=== PATIENT | male | born 1960 | race African-American/Black ===

== ENCOUNTER 2018-06-03 08:31 | Inpatient (IN) | payer OTHER ==
[2018-06-03 09:05] VITALS: BMI 32.8
--- NOTE | 2018-06-03 09:51 | HP ---
CIWA Score - CIWA Score Nausea/Vomitin-Mild Nausea/No Vomiting Muscle Tremors: 4-Moderate,w/Arms Extend Anxiety: 4-Mod. Anxious/Guarded Agitation: 1-Slight > Activity Paroxysmal Sweats: 1-Minimal Palms Moist Orientation: 0-Oriented Tacttile Disturbances: 1-Very Mild Itch/Numbness Auditory Disturbances: 1-Very Mild Visual Disturbances: 1-Very Mild Sensitivity Headache: 2-Mild CIWA-Ar Total Score: 16 Admission ROS BHS - HPI Chief Complaint: I want to get clean, get my life back together, start fresh, get off everything period, I'm really tired, please help me, drugs just messed my life up Allergies/Adverse Reactions: Allergies Allergy/AdvReac Type Severity Reaction Status Date / Time aspirin Allergy Mild Hives Verified 06/03/18 09:14 History of Present Illness: 57 yo gentleman here for detox from alcohol. Patient is on a pain management program - on oxycodone for back pain - which he states he does not abuse - he was told we cannot give him that here and he states he is ok with that. States he has had an overdose twice with heroin; no seizures, black out long time ago. Longest time sober was six years. Never in methadone program. Exam Limitations: Clinical Condition - Ebola screening Have you traveled outside of the country in the last 21 days: No (N) Have you had contact with anyone from an Ebola affected area: No Have you been sick,other than usual withdrawal symptoms: No Do you have a fever: No - Review of Systems Constitutional: Loss of Appetite, Night Sweats, Changes in sleep, Weakness EENT: reports: No Symptoms Reported Respiratory: reports: No Symptoms reported Cardiac: reports: No Symptoms Reported GI: reports: Poor Appetite, Poor Fluid Intake, Indigestion, Abdominal cramping : reports: Frequency Musculoskeletal: reports: Back Pain, Muscle Pain Integumentary: reports: No Symptoms Reported Neuro: reports: Headache, Tremors Endocrine: reports: No Symptoms Reported Hematology: reports: No Symptoms Reported Psychiatric: reports: Judgement Intact, Mood/Affect Appropiate, Orientated x3, Anxious Other Systems: Reviewed and Negative Patient History - Patient Medical History Hx Asthma: Yes (on inhaler) Hx Chronic Obstructive Pulmonary Disease (COPD): No Hx Cancer: No Hx Congestive Heart Failure: No Hx Hypertension: Yes (on meds) Hx Hypercholesterolemia: No Hx Pacemaker: No HX Cerebrovascular Accident: No Hx Seizures: No Hx Diabetes: No Hx Gastrointestinal Disorders: No Hx Liver Disease: No Hx Genitourinary Disorders: No Hx Sexually Transmitted Disorders: No Hx Renal Disease (ESRD): No Hx Thyroid Disease: No Hx Human Immunodeficiency Virus (HIV): No Hx Hepatitis C: Yes (treated - harvoni) Hx Depression: Yes (hospitalized december 2017; on meds) Hx Suicide Attempt: Yes (thoughts) Hx Bipolar Disorder: No Hx Schizophrenia: Yes (hears voices; on meds) Other Medical History: back pain, OA knees - Patient Surgical History Past Surgical History: Yes Hx Orthopedic Surgery: Yes (laminectomy 1999; right knee arthroscopy 10/2017; ) - PPD History Previous Implant?: Yes Documented Results: Negative w/proof PPD to be Administered?: Yes - Reproductive History Patient is a Female of Child Bearing Age (11 -55 yrs old): No (male) - Smoking Cessation Smoking history: Current every day smoker Have you smoked in the past 12 months: Yes Aproximately how many cigarettes per day: 10 Initiated information on smoking cessation: Yes 'Breaking Loose' booklet given: 06/03/18 - Substance & Tx. History Hx Alcohol Use: Yes Hx Substance Use: Yes Substance Use Type: Alcohol, Cocaine, Heroin Hx Substance Use Treatment: Yes - Substances Abused Alcohol Route: Oral Frequency: Daily Amount used: 1/5 Rum Age of first use: 14 Date of Last Use: 06/01/18 crack Route: Smoking Frequency: 1-2 times per week Amount used: $700 Age of first use: 25 Date of Last Use: 05/30/18 heroin Route: Injection Frequency: 1-2 times per week Amount used: 2 bags Age of first use: 30 Date of Last Use: 05/27/18 Family Disease History - Family Disease History Family Disease History: Diabetes: Father (, hx etoh), Mother (, ), Heart Disease: Father, Other: Father, Mother, Brother (two - living - healthy ), Sister (one - living -brain tumor surgery), Son (one - living - healthy), Daughter (two - living - healthy) Admission Physical Exam BHS - Vital Signs Vital Signs: Vital Signs - 24 hr 06/03/18 09:01 Temperature 98.4 F Pulse Rate 96 H Respiratory 18 Rate Blood Pressure 138/83 - Physical General Appearance: Yes: Nourished, Appropriately Dressed, Moderate Distress, Obese, Tremorous, Anxious HEENTM: Yes: EOMI, Hearing grossly Normal, Normocephalic, Normal Voice, Pharynx Normal Respiratory: Yes: Normal Breath Sounds, No Respiratory Distress Neck: Yes: No masses,lesions,Nodules Breast: Yes: Breast Exam Deferred Cardiology: Yes: Regular Rhythm, Regular Rate Abdominal: Yes: Soft, Protuberent Genitourinary: Yes: Frequency Back: Yes: Normal Inspection, Surgical Scar (healed, midline lumbar-sacral) Musculoskeletal: Yes: full range of Motion, Gait Steady Extremities: Yes: Normal Inspection, Non-Tender Neurological: Yes: Fully Oriented, Alert, Normal Mood/Affect, Normal Response Integumentary: Yes: Normal Color, Warm Lymphatic: Yes: Within Normal Limits - Diagnostic (1) Alcohol dependence with uncomplicated withdrawal Current Visit: Yes Status: Chronic (2) Obesity (BMI 30.0-34.9) Current Visit: Yes Status: Chronic (3) Post laminectomy syndrome Current Visit: Yes Status: Chronic (4) Opiate dependence, continuous Current Visit: Yes Status: Chronic (5) Chronic back pain Current Visit: Yes Status: Chronic Qualifiers: Back pain location: low back pain Back pain laterality: midline Sciatica presence: without sciatica Qualified Code(s): M54.5 - Low back pain; G89.29 - Other chronic pain (6) Asthma Current Visit: Yes Status: Chronic Qualifiers: Asthma severity: mild Asthma persistence: intermittent Asthma complication type: uncomplicated Qualified Code(s): J45.20 - Mild intermittent asthma, uncomplicated (7) Hepatitis C virus infection cured after antiviral drug therapy Current Visit: Yes Status: Chronic (8) Osteoarthritis of knees, bilateral Current Visit: Yes Status: Chronic Qualifiers: Osteoarthritis type: primary Qualified Code(s): M17.0 - Bilateral primary osteoarthritis of knee Cleared for Admission S - Detox or Rehab [facility] Level of Care: Medically Managed Detox Regimen/Protocol: Librium [facility] Breath Alcohol Content Breath Alcohol Content: 0 Urine Drug Screen - Results Drug Screen Negative: No Urine Drug Screen Results: BZO-Benzodiazepines, OXY-Oxycodone
[2018-06-03] MEDS ORDERED: P-EPHED 60MG/TRIPROLIDI 2.5MG TABLET PO PRN (10:04)
[2018-06-03] MEDS ORDERED: MAGNESIUM CITRATE 300 ML BOTTLE PO PRN (10:04)
[2018-06-03] MEDS ORDERED: hydrOXYzine PAMOATE 50 MG CAPSULE (FP) PO PRN (10:04)
[2018-06-03] MEDS ORDERED: chlordiazePOXIDE HCL 25 MG CAPSULE PO PRN (10:04)
[2018-06-03] MEDS ORDERED: LOPERAMIDE HCL 2 MG CAPSULE PO PRN (10:04)
[2018-06-03] MEDS ORDERED: guaiFENesin/D-METHORPHAN HB 10 ML UNIT-DOSE CUPS PO PRN (10:04)
[2018-06-03] MEDS ORDERED: MAG HYDROX/AL HYDROX/SIMETH 30 ML UNIT-DOSE CUP PO PRN (10:04)
[2018-06-03] MEDS ORDERED: MAGNESIUM HYDROX 2400MG/30ML ORAL SUSPENSION 30 ML CUP PO PRN (10:04)
[2018-06-03] MEDS ORDERED: MENTHOL/PHENOL 1 EACH UD MM PRN (10:04)
[2018-06-03] MEDS ORDERED: ACETAMINOPHEN 325 MG TABLET (FP) PO PRN (10:04)
[2018-06-03] MEDS ORDERED: NICOTINE POLACRILEX 2 MG GUM BUC PRN (10:04)
[2018-06-03] MEDS ORDERED: chlordiazePOXIDE HCL 25 MG CAPSULE PO ONE (11:00)
[2018-06-03] MEDS ORDERED: ALBUTEROL SO4 8 GM HFA INHALER IH PRN (11:50)
[2018-06-03] MEDS: CYCLOBENZAPRINE HCL 10 MG TABLET (FP) PO PRN ×2 (11:58→22:22)
[2018-06-03] MEDS: LIDOCAINE 5% TOPICAL PATCH TP SCH (11:59)
[2018-06-03] MEDS: NICOTINE 21 MG/24 HOURS TOPICAL PATCH TD SCH (11:59)
[2018-06-03] MEDS ORDERED: ALBUTEROL SO4 8 GM HFA INHALER IH SCH (14:00)
[2018-06-03 17:00] LABS: URINE APPEARANCE SLCLOUDY; URINE BILIRUBIN NEGATIVE (<2.0 mg/dL); URINE COLOR DKYELLOW; URINE GLUCOSE (UA) NEGATIVE (NEGATIVE); URINE KETONE NEGATIVE (NEGATIVE); URINE LEUK ESTERASE TRACE (NEGATIVE); URINE NITRITE POSITIVE (NEGATIVE); URINE PROTEIN NEGATIVE (NEGATIVE); URINE UROBILINOGEN NEGATIVE mg/dL (0.2-1.0)
[2018-06-03 17:24] LABS: EPI CELLS RARE /HPF (FEW); URINE BACTERIA RARE /hpf (NONE SEEN); URINE MUCUS MODERATE
[2018-06-03] MEDS: chlordiazePOXIDE HCL 25 MG CAPSULE PO SCH ×2 (17:56→22:22)
[2018-06-03] MEDS ORDERED: MELATONIN 5 MG TABLETS PO PRN (22:00)
[2018-06-03] MEDS: THIAMINE HCL 100 MG TABLET (FP) PO SCH (22:22)
[2018-06-04] MEDS: LIDOCAINE PATCH REMOVAL MC SCH ×2 (00:44→22:19)
[2018-06-04] MEDS: chlordiazePOXIDE HCL 25 MG CAPSULE PO SCH ×4 (05:13→22:24)
[2018-06-04] MEDS: CYCLOBENZAPRINE HCL 10 MG TABLET (FP) PO PRN ×3 (05:13→22:25)
[2018-06-04] MEDS: PRENATAL VITAMINS W/ FOLIC ACID TABLET (FP) PO SCH (10:43)
[2018-06-04] MEDS: LISINOPRIL 10 MG TABLET (FP) PO SCH (10:43)
[2018-06-04] MEDS: NICOTINE 21 MG/24 HOURS TOPICAL PATCH TD SCH (10:44)
[2018-06-04] MEDS: LIDOCAINE 5% TOPICAL PATCH TP SCH (10:44)
[2018-06-04 10:56] LABS: HEMATOCRIT 45.5 % (35.4-49); HEMOGLOBIN 15.4 GM/dL (11.7-16.9); MCH 32.9 pg (25.7-33.7); MCHC 33.7 g/dl (32.0-35.9); MEAN CELL VOLUME 97.5 fl (80-96); MEAN PLT VOLUME 10.4 fl (7.5-11.1); PLATELET COUNT 172 K/MM3 (134-434); RBC 4.67 M/mm3 (4.00-5.60); RDW 13.4 % (11.9-15.9); WHITE BLOOD COUNT 6.3 K/mm3 (4.0-10.0)
[2018-06-04 11:05] LABS: ALBUMIN 3.6 g/dl (3.4-5.0); CHLORIDE 104 mmol/L (98-107); SODIUM 144 mmol/L (136-145)
[2018-06-04 11:11] LABS: ALK PHOS 78 U/L (45-117); ANION GAP 9 MMOL/L (8-16); BILIRUBIN,TOTAL 0.5 mg/dL (0.2-1.0); BLOOD UREA NITROGEN 12 mg/dL (7-18); CALCIUM 9.1 mg/dL (8.5-10.1); CO2 31 mmol/L (21-32); CREATININE 0.9 mg/dL (0.7-1.3); GLUCOSE,RANDOM 101 mg/dL (74-106); SGOT/AST 39 U/L (15-37); SGPT/ALT 57 U/L (12-78); TOT PROT 7.3 g/dl (6.4-8.2)
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
[2018-06-04] MEDS: risperiDONE 1 MG TABLET (FP) PO SCH ×2 (13:35→22:23)
--- NOTE | 2018-06-04 16:37 | PN ---
[facility] CIWA - CIWA Score Nausea/Vomitin Muscle Tremors: 3 Anxiety: 3 Agitation: 2 Paroxysmal Sweats: 3 Orientation: 0-Oriented Tacttile Disturbances: 1-Very Mild Itch/Numbness Auditory Disturbances: 0-None Visual Disturbances: 0-None Headache: 1-Very Mild CIWA-Ar Total Score: 15 [facility] Progress Note (SOAP) Subjective: Back pain, chills, tremor, interrupted sleep, nausea Objective: 06/04/18 16:33 Last Vital Signs Temp Pulse Resp BP Pulse Ox 98.3 F 96 H 20 123/91 06/04/18 13:15 06/04/18 13:15 06/04/18 13:15 06/04/18 13:15 Laboratory Tests 06/03/18 06/04/18 06/04/18 14:07 08:10 08:10 WBC 6.3 RBC 4.67 Hgb 15.4 Hct 45.5 MCV 97.5 H MCH 32.9 MCHC 33.7 RDW 13.4 Plt Count 172 MPV 10.4 Sodium 144 Potassium 4.0 Chloride 104 Carbon Dioxide 31 Anion Gap 9 BUN 12 Creatinine 0.9 Creat Clearance w eGFR > 60 Random Glucose 101 Calcium 9.1 Total Bilirubin 0.5 AST 39 H ALT 57 Alkaline Phosphatase 78 Total Protein 7.3 Albumin 3.6 Urine Color Dkyellow Urine Appearance Slcloudy Urine pH 5.0 Ur Specific [place] 1.021 Urine Protein Negative Urine Glucose (UA) Negative Urine Ketones Negative Urine Blood 1+ H Urine Nitrite Positive Urine Bilirubin Negative Urine Urobilinogen Negative Ur Leukocyte Esterase Trace Urine WBC (Auto) 8 Urine RBC (Auto) <1 Ur Epithelial Cells Rare Urine Bacteria Rare Urine Mucus Moderate RPR Titer HIV 1&2 Antibody Screen HIV P24 Antigen 06/04/18 06/04/18 08:10 08:10 WBC RBC Hgb Hct MCV MCH MCHC RDW Plt Count MPV Sodium Potassium Chloride Carbon Dioxide Anion Gap BUN Creatinine Creat Clearance w eGFR Random Glucose Calcium Total Bilirubin AST ALT Alkaline Phosphatase Total Protein Albumin Urine Color Urine Appearance Urine pH Ur Specific [place] Urine Protein Urine Glucose (UA) Urine Ketones Urine Blood Urine Nitrite Urine Bilirubin Urine Urobilinogen Ur Leukocyte Esterase Urine WBC (Auto) Urine RBC (Auto) Ur Epithelial Cells Urine Bacteria Urine Mucus RPR Titer Nonreactive HIV 1&2 Antibody Screen Negative HIV P24 Antigen Negative Labs reviewed: Noted with abnormal UA and Acute UTI Assessment: 06/04/18 16:35 Withdrawal symptoms Noted with Abnormal UA and Acute UTI: Plan: Continue detox Abnormal UA: encouraged PO water intake Acute UTI: send urine culture, start ciprofloxacin 500mg PO bid x 10 days, follow up with your PCP for further evaluation
[2018-06-04] MEDS: THIAMINE HCL 100 MG TABLET (FP) PO SCH (22:24)
[2018-06-04] MEDS: ZOLPIDEM TARTRATE 10 MG TABLET (PARK CARE ONLY) PO PRN (22:27)
[2018-06-05] MEDS: chlordiazePOXIDE HCL 25 MG CAPSULE PO SCH ×2 (06:15→10:23)
[2018-06-05] MEDS: PRENATAL VITAMINS W/ FOLIC ACID TABLET (FP) PO SCH (10:23)
[2018-06-05] MEDS: LIDOCAINE 5% TOPICAL PATCH TP SCH (10:23)
[2018-06-05] MEDS: LISINOPRIL 10 MG TABLET (FP) PO SCH (10:23)
[2018-06-05] MEDS: risperiDONE 1 MG TABLET (FP) PO SCH ×2 (10:23→22:26)
[2018-06-05] MEDS: NICOTINE 21 MG/24 HOURS TOPICAL PATCH TD SCH (10:24)
--- NOTE | 2018-06-05 11:23 | EKG ---
Test Reason : Blood Pressure : / mmHG Vent. Rate : 079 BPM Atrial Rate : 079 BPM P-R Int : 246 ms QRS Dur : 074 ms QT Int : 378 ms P-R-T Axes : 063 013 040 degrees QTc Int : 433 ms SINUS RHYTHM WITH 1ST DEGREE A-V BLOCK OTHERWISE NORMAL ECG NO PREVIOUS ECGS AVAILABLE Confirmed by LITTLE MCDANIELS, VALENITNA ([id number]) on 06/05/2018 11:23:11 AM Referred By: Confirmed By:VALENTINA FITCH MD
--- NOTE | 2018-06-05 15:36 | PN ---
[facility] CIWA - CIWA Score Nausea/Vomitin Muscle Tremors: 3 Anxiety: 3 Agitation: 2 Paroxysmal Sweats: 3 Orientation: 0-Oriented Tacttile Disturbances: 0-None Auditory Disturbances: 0-None Visual Disturbances: 0-None Headache: 0-None Present CIWA-Ar Total Score: 13 [facility] Progress Note (SOAP) Subjective: shakes sweats back pain Objective: 06/05/18 15:35 in bed A & O x 3 Vital Signs Temperature 97.5 F L 06/05/18 13:19 Pulse Rate 115 H 06/05/18 13:19 Respiratory Rate 18 06/05/18 13:19 Blood Pressure 111/82 06/05/18 13:19 O2 Sat by Pulse Oximetry (%) Assessment: 06/05/18 15:36 withdrawal sx Plan: continue detox lido patch/prn pain med for back pain
[2018-06-05] MEDS: chlordiazePOXIDE 5 MG CAPSULE PO SCH ×2 (16:58→22:26)
[2018-06-05] MEDS: CYCLOBENZAPRINE HCL 10 MG TABLET (FP) PO PRN (17:00)
[2018-06-05] MEDS: THIAMINE HCL 100 MG TABLET (FP) PO SCH (22:25)
[2018-06-05] MEDS: LIDOCAINE PATCH REMOVAL MC SCH (22:26)
[2018-06-05] MEDS: ZOLPIDEM TARTRATE 10 MG TABLET (PARK CARE ONLY) PO PRN (22:26)
[2018-06-06] MEDS: chlordiazePOXIDE 5 MG CAPSULE PO SCH ×2 (05:40→10:12)
[2018-06-06] MEDS: CYCLOBENZAPRINE HCL 10 MG TABLET (FP) PO PRN (05:41)
[2018-06-06] MEDS: LIDOCAINE 5% TOPICAL PATCH TP SCH (10:12)
[2018-06-06] MEDS: PRENATAL VITAMINS W/ FOLIC ACID TABLET (FP) PO SCH (10:12)
[2018-06-06] MEDS: LISINOPRIL 10 MG TABLET (FP) PO SCH (10:12)
[2018-06-06] MEDS: risperiDONE 1 MG TABLET (FP) PO SCH ×2 (10:12→22:09)
[2018-06-06] MEDS: NICOTINE 21 MG/24 HOURS TOPICAL PATCH TD SCH (10:13)
--- NOTE | 2018-06-06 13:26 | PN ---
[facility] Progress Note (SOAP) Subjective: ANXIETY,SWEATS,DRY MOTH, CHRONIC BACK PAIN, INTERMITTENT SLEEP. Objective: 06/06/18 13:25 Vital Signs 06/06/18 06/06/18 06:39 09:26 Temperature 97.8 F 96.7 F L Pulse Rate 78 95 H Respiratory 18 18 Rate Blood Pressure 104/72 131/96 Laboratory Tests 06/03/18 06/04/18 06/04/18 14:07 08:10 08:10 WBC 6.3 RBC 4.67 Hgb 15.4 Hct 45.5 MCV 97.5 H MCH 32.9 MCHC 33.7 RDW 13.4 Plt Count 172 MPV 10.4 Sodium 144 Potassium 4.0 Chloride 104 Carbon Dioxide 31 Anion Gap 9 BUN 12 Creatinine 0.9 Creat Clearance w eGFR > 60 Random Glucose 101 Calcium 9.1 Total Bilirubin 0.5 AST 39 H ALT 57 Alkaline Phosphatase 78 Total Protein 7.3 Albumin 3.6 Urine Color Dkyellow Urine Appearance Slcloudy Urine pH 5.0 Ur Specific [place] 1.021 Urine Protein Negative Urine Glucose (UA) Negative Urine Ketones Negative Urine Blood 1+ H Urine Nitrite Positive Urine Bilirubin Negative Urine Urobilinogen Negative Ur Leukocyte Esterase Trace Urine WBC (Auto) 8 Urine RBC (Auto) <1 Ur Epithelial Cells Rare Urine Bacteria Rare Urine Mucus Moderate RPR Titer HIV 1&2 Antibody Screen HIV P24 Antigen 06/04/18 06/04/18 08:10 08:10 WBC RBC Hgb Hct MCV MCH MCHC RDW Plt Count MPV Sodium Potassium Chloride Carbon Dioxide Anion Gap BUN Creatinine Creat Clearance w eGFR Random Glucose Calcium Total Bilirubin AST ALT Alkaline Phosphatase Total Protein Albumin Urine Color Urine Appearance Urine pH Ur Specific [place] Urine Protein Urine Glucose (UA) Urine Ketones Urine Blood Urine Nitrite Urine Bilirubin Urine Urobilinogen Ur Leukocyte Esterase Urine WBC (Auto) Urine RBC (Auto) Ur Epithelial Cells Urine Bacteria Urine Mucus RPR Titer Nonreactive HIV 1&2 Antibody Screen Negative HIV P24 Antigen Negative Assessment: 06/06/18 13:26 WITHDRAWAL SX Plan: CONTINUE DETOX RX FOR LISINOPRIL AND LEVAQUIN SENT TO [facility] FOR PT TO ADVERTISING DIRECTOR.
[2018-06-06] MEDS: chlordiazePOXIDE HCL 10 MG CAPSULE PO SCH ×2 (17:26→22:09)
[2018-06-06] MEDS: THIAMINE HCL 100 MG TABLET (FP) PO SCH (22:09)
[2018-06-06] MEDS: LIDOCAINE PATCH REMOVAL MC SCH (22:10)
[2018-06-06] MEDS: ZOLPIDEM TARTRATE 10 MG TABLET (PARK CARE ONLY) PO PRN (22:11)
[2018-06-07] MEDS: chlordiazePOXIDE HCL 10 MG CAPSULE PO SCH ×2 (06:22→10:09)
--- NOTE | 2018-06-07 08:37 | DS ---
[facility] Detox Discharge Summary Admission Date: 06/03/18 - History Present History: Alcohol Dependence Additional Comments: DETOX COMPLETED. ALERT O X 3. Pertinent Past History: PLEASE SEE DX BELOW - Physical Exam Results Vital Signs: Vital Signs Temperature 97.3 F L 06/06/18 22:15 Pulse Rate 96 H 06/06/18 22:15 Respiratory Rate 18 06/07/18 03:30 Blood Pressure 118/85 06/06/18 22:15 O2 Sat by Pulse Oximetry (%) Pertinent Admission Physical Exam Findings: WITHDRAWAL SX Laboratory Tests 06/03/18 06/04/18 06/04/18 14:07 08:10 08:10 WBC 6.3 RBC 4.67 Hgb 15.4 Hct 45.5 MCV 97.5 H MCH 32.9 MCHC 33.7 RDW 13.4 Plt Count 172 MPV 10.4 Sodium 144 Potassium 4.0 Chloride 104 Carbon Dioxide 31 Anion Gap 9 BUN 12 Creatinine 0.9 Creat Clearance w eGFR > 60 Random Glucose 101 Calcium 9.1 Total Bilirubin 0.5 AST 39 H ALT 57 Alkaline Phosphatase 78 Total Protein 7.3 Albumin 3.6 Urine Color Dkyellow Urine Appearance Slcloudy Urine pH 5.0 Ur Specific [place] 1.021 Urine Protein Negative Urine Glucose (UA) Negative Urine Ketones Negative Urine Blood 1+ H Urine Nitrite Positive Urine Bilirubin Negative Urine Urobilinogen Negative Ur Leukocyte Esterase Trace Urine WBC (Auto) 8 Urine RBC (Auto) <1 Ur Epithelial Cells Rare Urine Bacteria Rare Urine Mucus Moderate RPR Titer HIV 1&2 Antibody Screen HIV P24 Antigen 06/04/18 06/04/18 08:10 08:10 WBC RBC Hgb Hct MCV MCH MCHC RDW Plt Count MPV Sodium Potassium Chloride Carbon Dioxide Anion Gap BUN Creatinine Creat Clearance w eGFR Random Glucose Calcium Total Bilirubin AST ALT Alkaline Phosphatase Total Protein Albumin Urine Color Urine Appearance Urine pH Ur Specific [place] Urine Protein Urine Glucose (UA) Urine Ketones Urine Blood Urine Nitrite Urine Bilirubin Urine Urobilinogen Ur Leukocyte Esterase Urine WBC (Auto) Urine RBC (Auto) Ur Epithelial Cells Urine Bacteria Urine Mucus RPR Titer Nonreactive HIV 1&2 Antibody Screen Negative HIV P24 Antigen Negative - Treatment Hospital Course: Detox Protocol Followed, Detoxed Safely, Responded well, Discharged Condition Good - Medication Discharge Medications: Ambulatory Orders Bupropion HCl [Wellbutrin -] 450 mg PO DAILY 09/08/18 Gabapentin 300 mg PO TID 06/03/18 Oxycodone HCl/Acetaminophen [Percocet 10-325 mg Tablet] 1 tab PO TID 06/03/18 Oxycodone Myristate [Xtampza ER] 9 mg PO BID 06/03/18 hydrOXYzine PAMOATE [Vistaril -] 75 mg PO TID 06/03/18 Bupropion HCl [Wellbutrin Xl -] 450 mg PO DAILY #90 tab.sr.24h 06/04/18 Risperidone [Risperdal] 3 mg PO BID #60 tablet 06/04/18 Albuterol Sulfate [Proventil HFA Inhaler -] 2 puff IH QID #1 hfa.aer.ad Lisinopril 10 mg PO DAILY 30 Days tablet 06/06/18 levoFLOXacin [Levaquin -] 500 mg PO DAILY@0600 #5 tablet 06/06/18 - Diagnosis (1) Alcohol dependence with uncomplicated withdrawal Current Visit: Yes Status: Acute (2) UTI (urinary tract infection) Current Visit: Yes Status: Acute (3) Asthma Current Visit: Yes Status: Chronic Qualifiers: Asthma severity: mild Asthma persistence: intermittent Asthma complication type: uncomplicated Qualified Code(s): J45.20 - Mild intermittent asthma, uncomplicated (4) HTN (hypertension) Current Visit: Yes Status: Chronic Qualifiers: Hypertension type: essential hypertension Qualified Code(s): I10 - Essential (primary) hypertension (5) Hepatitis C virus infection cured after antiviral drug therapy Current Visit: Yes Status: Chronic (6) Nicotine dependence Current Visit: Yes Status: Acute Qualifiers: Nicotine product type: cigarettes Substance use status: in withdrawal Qualified Code(s): F17.213 - Nicotine dependence, cigarettes, with withdrawal (7) Obesity (BMI 30.0-34.9) Current Visit: Yes Status: Chronic (8) Osteoarthritis of knees, bilateral Current Visit: Yes Status: Chronic Qualifiers: Osteoarthritis type: primary Qualified Code(s): M17.0 - Bilateral primary osteoarthritis of knee (9) Post laminectomy syndrome Current Visit: Yes Status: Chronic (10) Abnormal finding on urinalysis Current Visit: Yes Status: Acute - AMA Did Patient Leave Against Medical Advice: No
[2018-06-07] MEDS: PRENATAL VITAMINS W/ FOLIC ACID TABLET (FP) PO SCH (10:05)
[2018-06-07] MEDS: LISINOPRIL 10 MG TABLET (FP) PO SCH (10:06)
[2018-06-07] MEDS: risperiDONE 1 MG TABLET (FP) PO SCH (10:07)
[2018-06-07] MEDS: LIDOCAINE 5% TOPICAL PATCH TP SCH (10:08)
[2018-06-07] MEDS: NICOTINE 21 MG/24 HOURS TOPICAL PATCH TD SCH (10:08)
--- NOTE | 2018-06-07 16:38 | PN ---
[facility] Progress Note (SOAP) Subjective: PT IS ALERT O X 3. DETOX COMPLETED AND REFERRAL MADE BY COUNSELOR REMY MOYA WHO REQUESTS PT HELD TILL TOMORROW TO ENABLE SAFE DISCHARGE TO REHAB BECAUSE RESPONSE IS STILL AWAITED FROM REFERRAL REHAB. Objective: 06/07/18 16:40 Vital Signs 06/07/18 06/07/18 09:09 13:18 Temperature 97.2 F L 97.9 F Pulse Rate 108 H 101 H Respiratory 20 20 Rate Blood Pressure 102/81 117/82 Laboratory Tests 06/03/18 06/04/18 06/04/18 14:07 08:10 08:10 WBC 6.3 RBC 4.67 Hgb 15.4 Hct 45.5 MCV 97.5 H MCH 32.9 MCHC 33.7 RDW 13.4 Plt Count 172 MPV 10.4 Sodium 144 Potassium 4.0 Chloride 104 Carbon Dioxide 31 Anion Gap 9 BUN 12 Creatinine 0.9 Creat Clearance w eGFR > 60 Random Glucose 101 Calcium 9.1 Total Bilirubin 0.5 AST 39 H ALT 57 Alkaline Phosphatase 78 Total Protein 7.3 Albumin 3.6 Urine Color Dkyellow Urine Appearance Slcloudy Urine pH 5.0 Ur Specific [place] 1.021 Urine Protein Negative Urine Glucose (UA) Negative Urine Ketones Negative Urine Blood 1+ H Urine Nitrite Positive Urine Bilirubin Negative Urine Urobilinogen Negative Ur Leukocyte Esterase Trace Urine WBC (Auto) 8 Urine RBC (Auto) <1 Ur Epithelial Cells Rare Urine Bacteria Rare Urine Mucus Moderate RPR Titer HIV 1&2 Antibody Screen HIV P24 Antigen 06/04/18 06/04/18 08:10 08:10 WBC RBC Hgb Hct MCV MCH MCHC RDW Plt Count MPV Sodium Potassium Chloride Carbon Dioxide Anion Gap BUN Creatinine Creat Clearance w eGFR Random Glucose Calcium Total Bilirubin AST ALT Alkaline Phosphatase Total Protein Albumin Urine Color Urine Appearance Urine pH Ur Specific [place] Urine Protein Urine Glucose (UA) Urine Ketones Urine Blood Urine Nitrite Urine Bilirubin Urine Urobilinogen Ur Leukocyte Esterase Urine WBC (Auto) Urine RBC (Auto) Ur Epithelial Cells Urine Bacteria Urine Mucus RPR Titer Nonreactive HIV 1&2 Antibody Screen Negative HIV P24 Antigen Negative Assessment: 06/07/18 16:40 NAD Plan: D/C IN A.M
[2018-06-07 17:20] VITALS: BP 101/74; PULSE 94; TEMP 96.9
== END 2018-06-07 18:56 | disposition other institution (70) | DRG 773 ==
LOC: YASAS 08:31 → Y3N 10:41
PROC: HZ2ZZZZ Detoxification Services for Substance Abuse Treatment (ICD-10-PCS; principal; 2018-06-03)
DX: F10.230 Alcohol dependence with withdrawal, uncomplicated (principal); F11.20 Opioid dependence, uncomplicated; F14.20 Cocaine dependence, uncomplicated; F17.210 Nicotine dependence, cigarettes, uncomplicated; F19.24 Other psychoactive substance dependence with psychoactive substance-induced mood disorder; F19.282 Other psychoactive substance dependence with psychoactive substance-induced sleep disorder; F20.9 Schizophrenia, unspecified; I10 Essential (primary) hypertension; J45.20 Mild intermittent asthma, uncomplicated; M54.5 Low back pain; M96.1 Postlaminectomy syndrome, not elsewhere classified; N39.0 Urinary tract infection, site not specified; E66.9 Obesity, unspecified; Z68.30 Body mass index [BMI] 30.0-30.9, adult; Z86.19 Personal history of other infectious and parasitic diseases; R45.851 Suicidal ideations; M17.0 Bilateral primary osteoarthritis of knee
CPT/HCPCS: 36415; 80053; 81003; 81015; 85027; 86593; 87086; 87186; 87389; 93005; 93010; J2794

== ENCOUNTER 2018-06-07 19:23 | Inpatient (IN) | payer OTHER ==
[2018-06-07] MEDS ORDERED: MAGNESIUM HYDROX 2400MG/30ML ORAL SUSPENSION 30 ML CUP PO PRN (20:18)
[2018-06-07] MEDS ORDERED: MAG HYDROX/AL HYDROX/SIMETH 30 ML UNIT-DOSE CUP PO PRN (20:18)
[2018-06-07] MEDS ORDERED: MENTHOL/PHENOL 1 EACH UD MM PRN (20:18)
[2018-06-07] MEDS ORDERED: LOPERAMIDE HCL 2 MG CAPSULE PO PRN (20:18)
[2018-06-07] MEDS ORDERED: guaiFENesin/D-METHORPHAN HB 10 ML UNIT-DOSE CUPS PO PRN (20:18)
[2018-06-07] MEDS ORDERED: P-EPHED 60MG/TRIPROLIDI 2.5MG TABLET PO PRN (20:18)
[2018-06-07] MEDS ORDERED: MAGNESIUM CITRATE 300 ML BOTTLE PO PRN (20:18)
[2018-06-07] MEDS ORDERED: ACETAMINOPHEN 325 MG TABLET (FP) PO PRN (20:18)
[2018-06-07] MEDS ORDERED: NICOTINE POLACRILEX 2 MG GUM BUC PRN (20:20)
--- NOTE | 2018-06-07 20:20 | HP ---
[facility] Rehab Assess/Revision - Admission History Admitted to Rehab from: [facility] Date of Admission to Rehab: 06/07/18 - Findings Detox History & Physical reviewed: Yes Concur with findings: Yes Inpatient Rehab Admission - Initial Determination Are CD services needed?: Yes Free of communicable disease: Yes Not in need of hospitalization: Yes - Rehab Admission Criteria Previous failed treatment: Yes Poor recovery environment: Yes Comorbidities: Yes Lacks judgement: Yes Patient is meeting Inpatient Rehab admission criteria:: Yes
[2018-06-07] MEDS: ALBUTEROL SO4 8 GM HFA INHALER IH SCH (21:23)
[2018-06-07] MEDS: THIAMINE HCL 100 MG TABLET (FP) PO SCH (21:24)
[2018-06-07] MEDS: hydrOXYzine PAMOATE 50 MG CAPSULE (FP) PO PRN (21:24)
[2018-06-07] MEDS: MELATONIN 5 MG TABLETS PO PRN (21:24)
[2018-06-07] MEDS: IBUPROFEN 400 MG TABLET (FP) PO PRN (21:24)
[2018-06-08] MEDS: IBUPROFEN 400 MG TABLET (FP) PO PRN (06:42)
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
[2018-06-08] MEDS: LISINOPRIL 10 MG TABLET (FP) PO SCH (10:12)
[2018-06-08] MEDS: NICOTINE 14 MG/24 HOURS TOPICAL PATCH TD SCH (10:12)
[2018-06-08] MEDS: PRENATAL VITAMINS W/ FOLIC ACID TABLET (FP) PO SCH (10:12)
[2018-06-08] MEDS: ALBUTEROL SO4 8 GM HFA INHALER IH SCH ×2 (10:12→15:48)
[2018-06-08] MEDS ORDERED: PNEUMOC 13-VAL CONJ-DIP CRM/PF 0.5 ML DISP.SYRIN IM ONE (12:00)
[2018-06-08] MEDS ORDERED: PNEUMOCOCCAL 23 VACCINE 0.5 ML VIAL IM ONE (12:00)
[2018-06-08] MEDS: BUPROPION HCL 150 MG, BUPROPION HCL 300 MG PO SCH (12:06)
[2018-06-08] MEDS: risperiDONE 3 MG TABLET PO SCH ×2 (12:06→21:49)
--- NOTE | 2018-06-08 14:40 | PN ---
[facility] Progress Note Note: Vital Signs Temperature 97.3 F L 06/08/18 07:07 Pulse Rate 98 H 06/08/18 07:07 Respiratory Rate 20 06/08/18 07:07 Blood Pressure 104/83 06/08/18 07:07 O2 Sat by Pulse Oximetry (%) patient was receiving levoquin for UTI while in detox, last dose 06/07/18. Will continue the rest of abx in detox. Ordered place.
[2018-06-08] MEDS: MELATONIN 5 MG TABLETS PO PRN (21:48)
[2018-06-08] MEDS: THIAMINE HCL 100 MG TABLET (FP) PO SCH (21:48)
[2018-06-08] MEDS: hydrOXYzine PAMOATE 50 MG CAPSULE (FP) PO PRN (21:48)
[2018-06-08] MEDS ORDERED: SUVOREXANT 10 MG TABLET PO PRN (22:00)
[2018-06-09] MEDS: IBUPROFEN 400 MG TABLET (FP) PO PRN (06:33)
[2018-06-09] MEDS: NICOTINE 14 MG/24 HOURS TOPICAL PATCH TD SCH (10:14)
[2018-06-09] MEDS: PRENATAL VITAMINS W/ FOLIC ACID TABLET (FP) PO SCH (10:14)
[2018-06-09] MEDS: BUPROPION HCL 150 MG, BUPROPION HCL 300 MG PO SCH (10:14)
[2018-06-09] MEDS: LISINOPRIL 10 MG TABLET (FP) PO SCH (10:14)
[2018-06-09] MEDS: risperiDONE 3 MG TABLET PO SCH ×2 (10:14→21:18)
[2018-06-09] MEDS ORDERED: LISINOPRIL 10 MG TABLET (FP) PO SCH (13:41)
--- NOTE | 2018-06-09 13:49 | PN ---
[facility] Progress Note (SOAP) Subjective: c/o back pain since 1999. S/p laminectomy. Usually get a /shot' at home once per month. Currently back pain at lower back and at both mid-lateral flank areas. Pain is "9" and sharp and increases w/ standing too long and sometimes unrelated to activity and worse at both flanks. Objective: A&0. Speech slow but appropriate. Old incisional scar noted on lower back. No deformities noted. (+) flank tenderness upon tapping but lower than CVA area. ROM spine w/ flexion to about 60 degrees. (L) knee area no swelling, increased erythema, or crepitus. Assessment: Chronic back and flank pain. Chronic (L) knee pain. Plan: Continue rehab. Motrin for pain. Lidocaine pads. Repeat UA in am. Continue f/u as needed.
[2018-06-09] MEDS: LIDOCAINE 5% TOPICAL PATCH TP SCH (16:55)
[2018-06-09 17:43] LABS: URINE APPEARANCE TURBID; URINE BILIRUBIN NEGATIVE (<2.0 mg/dL); URINE COLOR YELLOW; URINE GLUCOSE (UA) NEGATIVE (NEGATIVE); URINE KETONE NEGATIVE (NEGATIVE); URINE LEUK ESTERASE NEGATIVE (NEGATIVE); URINE NITRITE NEGATIVE (NEGATIVE); URINE PROTEIN NEGATIVE (NEGATIVE); URINE UROBILINOGEN NEGATIVE mg/dL (0.2-1.0)
[2018-06-09] MEDS: MELATONIN 5 MG TABLETS PO PRN (21:18)
[2018-06-09] MEDS: THIAMINE HCL 100 MG TABLET (FP) PO SCH (21:18)
[2018-06-09] MEDS: LIDOCAINE PATCH REMOVAL MC SCH (21:18)
[2018-06-10] MEDS: IBUPROFEN 400 MG TABLET (FP) PO PRN ×3 (01:42→18:19)
[2018-06-10] MEDS: LIDOCAINE 5% TOPICAL PATCH TP SCH (10:08)
[2018-06-10] MEDS: NICOTINE 14 MG/24 HOURS TOPICAL PATCH TD SCH (10:08)
[2018-06-10] MEDS: BUPROPION HCL 150 MG, BUPROPION HCL 300 MG PO SCH (10:09)
[2018-06-10] MEDS: LISINOPRIL 10 MG TABLET (FP) PO SCH (10:09)
[2018-06-10] MEDS: risperiDONE 3 MG TABLET PO SCH ×2 (10:09→21:28)
[2018-06-10] MEDS: PRENATAL VITAMINS W/ FOLIC ACID TABLET (FP) PO SCH (10:09)
[2018-06-10] MEDS: hydrOXYzine PAMOATE 50 MG CAPSULE (FP) PO PRN ×2 (18:19→21:28)
[2018-06-10] MEDS: THIAMINE HCL 100 MG TABLET (FP) PO SCH (21:28)
[2018-06-10] MEDS: MELATONIN 5 MG TABLETS PO PRN (21:28)
[2018-06-10] MEDS: LIDOCAINE PATCH REMOVAL MC SCH (21:29)
[2018-06-11] MEDS: BUPROPION HCL 150 MG, BUPROPION HCL 300 MG PO SCH (10:13)
[2018-06-11] MEDS: risperiDONE 3 MG TABLET PO SCH ×2 (10:13→21:31)
[2018-06-11] MEDS: LISINOPRIL 10 MG TABLET (FP) PO SCH (10:13)
[2018-06-11] MEDS: NICOTINE 14 MG/24 HOURS TOPICAL PATCH TD SCH (10:13)
[2018-06-11] MEDS: IBUPROFEN 400 MG TABLET (FP) PO PRN ×2 (10:13→21:33)
[2018-06-11] MEDS: PRENATAL VITAMINS W/ FOLIC ACID TABLET (FP) PO SCH (10:13)
[2018-06-11] MEDS: LIDOCAINE 5% TOPICAL PATCH TP SCH (10:14)
[2018-06-11] MEDS: hydrOXYzine PAMOATE 50 MG CAPSULE (FP) PO PRN ×2 (10:15→18:11)
[2018-06-11] MEDS: MELATONIN 5 MG TABLETS PO PRN (21:31)
[2018-06-11] MEDS: THIAMINE HCL 100 MG TABLET (FP) PO SCH (21:31)
[2018-06-11] MEDS: LIDOCAINE PATCH REMOVAL MC SCH (22:20)
[2018-06-12] MEDS: LISINOPRIL 10 MG TABLET (FP) PO SCH (09:53)
[2018-06-12] MEDS: PRENATAL VITAMINS W/ FOLIC ACID TABLET (FP) PO SCH (09:53)
[2018-06-12] MEDS: risperiDONE 3 MG TABLET PO SCH ×2 (09:53→22:16)
[2018-06-12] MEDS: BUPROPION HCL 150 MG, BUPROPION HCL 300 MG PO SCH (09:53)
[2018-06-12] MEDS: LIDOCAINE 5% TOPICAL PATCH TP SCH (09:54)
[2018-06-12] MEDS: NICOTINE 14 MG/24 HOURS TOPICAL PATCH TD SCH (09:54)
[2018-06-12] MEDS ORDERED: COLLOIDAL OATMEAL 1 BAR EACH TP PRN (14:07)
[2018-06-12] MEDS: IBUPROFEN 400 MG TABLET (FP) PO PRN (14:48)
[2018-06-12] MEDS: hydrOXYzine PAMOATE 50 MG CAPSULE (FP) PO PRN (14:49)
[2018-06-12] MEDS: THIAMINE HCL 100 MG TABLET (FP) PO SCH (22:16)
[2018-06-12] MEDS: LIDOCAINE PATCH REMOVAL MC SCH (22:17)
[2018-06-13] MEDS: BUPROPION HCL 150 MG, BUPROPION HCL 300 MG PO SCH (10:18)
[2018-06-13] MEDS: LISINOPRIL 10 MG TABLET (FP) PO SCH (10:18)
[2018-06-13] MEDS: NICOTINE 14 MG/24 HOURS TOPICAL PATCH TD SCH (10:18)
[2018-06-13] MEDS: hydrOXYzine PAMOATE 50 MG CAPSULE (FP) PO PRN ×2 (10:19→21:38)
[2018-06-13] MEDS: PRENATAL VITAMINS W/ FOLIC ACID TABLET (FP) PO SCH (10:19)
[2018-06-13] MEDS: risperiDONE 3 MG TABLET PO SCH ×2 (10:19→21:38)
[2018-06-13] MEDS: LIDOCAINE 5% TOPICAL PATCH TP SCH (10:19)
[2018-06-13] MEDS: IBUPROFEN 400 MG TABLET (FP) PO PRN ×2 (10:20→21:37)
[2018-06-13] MEDS: THIAMINE HCL 100 MG TABLET (FP) PO SCH (21:38)
[2018-06-13] MEDS: LIDOCAINE PATCH REMOVAL MC SCH (22:43)
[2018-06-14] MEDS: hydrOXYzine PAMOATE 50 MG CAPSULE (FP) PO PRN ×2 (10:05→17:15)
[2018-06-14] MEDS: LISINOPRIL 10 MG TABLET (FP) PO SCH (10:05)
[2018-06-14] MEDS: PRENATAL VITAMINS W/ FOLIC ACID TABLET (FP) PO SCH (10:05)
[2018-06-14] MEDS: BUPROPION HCL 150 MG, BUPROPION HCL 300 MG PO SCH (10:05)
[2018-06-14] MEDS: NICOTINE 14 MG/24 HOURS TOPICAL PATCH TD SCH (10:05)
[2018-06-14] MEDS: LIDOCAINE 5% TOPICAL PATCH TP SCH (10:05)
[2018-06-14] MEDS: risperiDONE 3 MG TABLET PO SCH ×2 (10:05→21:50)
[2018-06-14] MEDS: IBUPROFEN 400 MG TABLET (FP) PO PRN ×2 (10:06→21:52)
[2018-06-14] MEDS: ALBUTEROL SO4 8 GM HFA INHALER IH PRN (10:09)
[2018-06-14] MEDS: THIAMINE HCL 100 MG TABLET (FP) PO SCH (21:50)
[2018-06-14] MEDS: LIDOCAINE PATCH REMOVAL MC SCH (21:50)
[2018-06-15] MEDS: LIDOCAINE 5% TOPICAL PATCH TP SCH (09:54)
[2018-06-15] MEDS: PRENATAL VITAMINS W/ FOLIC ACID TABLET (FP) PO SCH (09:54)
[2018-06-15] MEDS: NICOTINE 14 MG/24 HOURS TOPICAL PATCH TD SCH (09:54)
[2018-06-15] MEDS: BUPROPION HCL 150 MG, BUPROPION HCL 300 MG PO SCH (09:55)
[2018-06-15] MEDS: hydrOXYzine PAMOATE 50 MG CAPSULE (FP) PO PRN ×2 (09:55→21:34)
[2018-06-15] MEDS: LISINOPRIL 10 MG TABLET (FP) PO SCH (09:55)
[2018-06-15] MEDS: IBUPROFEN 400 MG TABLET (FP) PO PRN ×2 (10:03→21:34)
[2018-06-15] MEDS: risperiDONE 3 MG TABLET PO SCH ×2 (11:00→21:34)
[2018-06-15] MEDS: ALBUTEROL SO4 8 GM HFA INHALER IH PRN (21:34)
[2018-06-15] MEDS: LIDOCAINE PATCH REMOVAL MC SCH (21:35)
[2018-06-15] MEDS: THIAMINE HCL 100 MG TABLET (FP) PO SCH (21:35)
[2018-06-16] MEDS: BUPROPION HCL 150 MG, BUPROPION HCL 300 MG PO SCH (09:56)
[2018-06-16] MEDS: PRENATAL VITAMINS W/ FOLIC ACID TABLET (FP) PO SCH (09:57)
[2018-06-16] MEDS: IBUPROFEN 400 MG TABLET (FP) PO PRN ×2 (09:57→22:03)
[2018-06-16] MEDS: LISINOPRIL 10 MG TABLET (FP) PO SCH (09:57)
[2018-06-16] MEDS: hydrOXYzine PAMOATE 50 MG CAPSULE (FP) PO PRN ×2 (09:57→22:02)
[2018-06-16] MEDS: risperiDONE 3 MG TABLET PO SCH ×2 (09:57→22:02)
[2018-06-16] MEDS: LIDOCAINE 5% TOPICAL PATCH TP SCH (09:58)
[2018-06-16] MEDS: NICOTINE 14 MG/24 HOURS TOPICAL PATCH TD SCH (09:59)
[2018-06-16] MEDS: ALBUTEROL SO4 8 GM HFA INHALER IH PRN (10:00)
[2018-06-16] MEDS: THIAMINE HCL 100 MG TABLET (FP) PO SCH (22:02)
[2018-06-16] MEDS: LIDOCAINE PATCH REMOVAL MC SCH (22:03)
[2018-06-17] MEDS: IBUPROFEN 400 MG TABLET (FP) PO PRN ×2 (08:48→21:53)
[2018-06-17] MEDS: BUPROPION HCL 150 MG, BUPROPION HCL 300 MG PO SCH (09:57)
[2018-06-17] MEDS: LISINOPRIL 10 MG TABLET (FP) PO SCH (09:57)
[2018-06-17] MEDS: PRENATAL VITAMINS W/ FOLIC ACID TABLET (FP) PO SCH (09:57)
[2018-06-17] MEDS: risperiDONE 3 MG TABLET PO SCH ×2 (09:57→21:53)
[2018-06-17] MEDS: NICOTINE 14 MG/24 HOURS TOPICAL PATCH TD SCH (09:58)
[2018-06-17] MEDS: LIDOCAINE 5% TOPICAL PATCH TP SCH (09:58)
[2018-06-17] MEDS: THIAMINE HCL 100 MG TABLET (FP) PO SCH (21:53)
[2018-06-17] MEDS: LIDOCAINE PATCH REMOVAL MC SCH (21:53)
[2018-06-18] MEDS: risperiDONE 3 MG TABLET PO SCH ×2 (09:52→21:10)
[2018-06-18] MEDS: NICOTINE 14 MG/24 HOURS TOPICAL PATCH TD SCH (09:52)
[2018-06-18] MEDS: LISINOPRIL 10 MG TABLET (FP) PO SCH (09:52)
[2018-06-18] MEDS: PRENATAL VITAMINS W/ FOLIC ACID TABLET (FP) PO SCH (09:52)
[2018-06-18] MEDS: LIDOCAINE 5% TOPICAL PATCH TP SCH (09:52)
[2018-06-18] MEDS: BUPROPION HCL 150 MG, BUPROPION HCL 300 MG PO SCH (09:52)
[2018-06-18] MEDS: IBUPROFEN 400 MG TABLET (FP) PO PRN ×2 (09:53→21:10)
[2018-06-18] MEDS: hydrOXYzine PAMOATE 50 MG CAPSULE (FP) PO PRN ×2 (09:53→21:10)
[2018-06-18] MEDS: THIAMINE HCL 100 MG TABLET (FP) PO SCH (21:10)
[2018-06-18] MEDS: LIDOCAINE PATCH REMOVAL MC SCH (21:10)
[2018-06-19] MEDS: LISINOPRIL 10 MG TABLET (FP) PO SCH (09:46)
[2018-06-19] MEDS: risperiDONE 3 MG TABLET PO SCH ×2 (09:46→21:23)
[2018-06-19] MEDS: BUPROPION HCL 150 MG, BUPROPION HCL 300 MG PO SCH (09:46)
[2018-06-19] MEDS: LIDOCAINE 5% TOPICAL PATCH TP SCH (09:47)
[2018-06-19] MEDS: PRENATAL VITAMINS W/ FOLIC ACID TABLET (FP) PO SCH (09:47)
[2018-06-19] MEDS: NICOTINE 14 MG/24 HOURS TOPICAL PATCH TD SCH (09:47)
[2018-06-19] MEDS: hydrOXYzine PAMOATE 50 MG CAPSULE (FP) PO PRN ×2 (09:48→21:23)
[2018-06-19] MEDS: IBUPROFEN 400 MG TABLET (FP) PO PRN ×2 (09:48→21:23)
[2018-06-19] MEDS: THIAMINE HCL 100 MG TABLET (FP) PO SCH (21:23)
[2018-06-19] MEDS: LIDOCAINE PATCH REMOVAL MC SCH (22:14)
[2018-06-20] MEDS: risperiDONE 3 MG TABLET PO SCH ×2 (10:41→21:30)
[2018-06-20] MEDS: NICOTINE 14 MG/24 HOURS TOPICAL PATCH TD SCH (10:41)
[2018-06-20] MEDS: PRENATAL VITAMINS W/ FOLIC ACID TABLET (FP) PO SCH (10:41)
[2018-06-20] MEDS: BUPROPION HCL 150 MG, BUPROPION HCL 300 MG PO SCH (10:41)
[2018-06-20] MEDS: LIDOCAINE 5% TOPICAL PATCH TP SCH (10:41)
[2018-06-20] MEDS: LISINOPRIL 10 MG TABLET (FP) PO SCH (10:41)
--- NOTE | 2018-06-20 12:25 | PN ---
Psychiatric Progress Note Vital Signs: Vital Signs Period Temp Pulse Resp BP Sys/Romano Pulse Ox Last 24 Hr 97.1 F 83-96 18-20 119-125/79-94 Date of Session: 06/20/18 Chief Complaint:: Discharge Note HPI: Patient addressing Alcohol, Opioid and Cocaine Dependence comorbid with Nicotine Dependence, Schizophrenia and Substance-Induced Sleep Disorder ROS: Asthma, HTN, Hep C, OA of both knees, Post laminectomy Current Medications: Active Medications Generic Name Dose Route Start Last Admin Trade Name Freq PRN Reason Stop Dose Admin Al Hydroxide/Mg Hydroxide 30 ml 06/07/18 20:18 Mylanta Oral Suspension - PO Q6H PRN DYSPEPSIA Albuterol Sulfate 2 puff 06/08/18 14:32 06/16/18 10:00 Ventolin Hfa Inhaler - IH 2 puff Q4H PRN Administration WHEEZING Bupropion HCl 150 mg/ 450 mg 06/08/18 11:40 06/20/18 10:41 Bupropion HCl 300 mg PO 450 mg DAILY ROBI Administration Colloidal Oatmeal 1 applic 06/12/18 14:07 06/12/18 14:48 Aveeno Soap - TP 1 bar DAILY PRN Administration HYGEINE Eucalyptus/Menthol/Phenol/Sorbitol 1 each 06/07/18 20:18 Cepastat Lozenge - MM Q4H PRN SORE THROAT Guaifenesin 10 ml 06/07/18 20:18 Robitussin Dm - PO Q6H PRN COUGH Hydroxyzine Pamoate 50 mg 06/07/18 20:18 06/19/18 21:23 Vistaril - PO 50 mg Q4H PRN Administration AGITATION Ibuprofen 400 mg 06/07/18 20:18 06/19/18 21:23 Motrin - PO 400 mg Q6H PRN Administration Pain Level 4-6 Lidocaine 2 patch 06/09/18 14:45 06/20/18 10:41 Lidoderm Patch - TP 2 patch DAILY ROBI Administration Lisinopril 10 mg 06/10/18 10:00 06/20/18 10:41 Prinivil PO 10 mg DAILY ROBI Administration Loperamide HCl 4 mg 06/07/18 20:18 Imodium - PO Q6H PRN DIARRHEA Magnesium Citrate 300 ml 06/07/18 20:18 Citroma - PO Q48H PRN CONSTIPATION Magnesium Hydroxide 30 ml 06/07/18 20:18 Milk Of Magnesia - PO DAILY PRN CONSTIPATION Melatonin 5 mg 06/07/18 22:00 06/11/18 21:31 Melatonin PO 5 mg HS PRN Administration INSOMNIA Miscellaneous 1 each 06/09/18 22:00 06/19/18 22:14 Lidoderm Patch Removal MC 1 each DAILY@2200 ROBI Administration Nicotine 14 mg 06/08/18 10:00 06/20/18 10:41 Nicoderm Patch - TD 14 mg DAILY ROBI Administration Nicotine Polacrilex 2 mg 06/07/18 20:20 Nicorette Gum - BUC Q2H PRN NICOTINE REPLACEMENT RX Multivit/Folic Acid/Iron 1 tab 06/08/18 10:00 06/20/18 10:41 Vitamins (Sjr) - PO 1 tab DAILY ROBI Administration Pseudoephedrine/Triprolidine 1 combo 06/07/18 20:18 Actifed - PO TID PRN NASAL CONGESTION Risperidone 3 mg 06/08/18 11:45 06/20/18 10:41 Risperdal - PO 3 mg BID ROBI Administration Thiamine HCl 100 mg 06/07/18 22:00 06/19/18 21:23 Vitamin B1 - PO 100 mg HS ROBI Administration Current Side Effect: No Lab tests ordered: Yes Lab tests reviewed: Yes Provider note:: Patient will complete this program on 06/21/18. He has met his treatment goals and will continue to address his issues in intermediate teacher residential treatment at [facility]. Told scientific technical writer that from his participation in this program, he has learned the importance of surounding himself with a sober support network in ordr to maintan abstinence. He responded well to Wellbutrin XL 450 mg po daily and Risperdal 3 mg po BID. Scripts for 30 days supply of these medications will be electronically transmitted to [facility] at [address] [place] [address]. He is stable for discharge on 06/21/18 Total face to face time:: 35 Mental Status Exam - Mental Status Exam Alert and Oriented to: Time, Place, Person Cognitive Function: Fair Patient Appearance: Well Groomed Mood: Hopeful, Euthymic Affect: Appropriate Patient Behavior: Cooperative Speech Pattern: Clear Voice Loudness: Normal Thought Process: Intact, Goal Oriented Thought Disorder: Not Present Hallucinations: Denies Suicidal Ideation: Denies Homicidal Ideation: Denies Insight/Judgement: Fair Sleep: Fair Appetite: Good Muscle strength/Tone: Normal Gait/Station: Normal Psychiatric Treatment Plan - Problem List (1) Alcohol dependence Current Visit: Yes (2) Opioid dependence Current Visit: Yes (3) Cocaine dependence Current Visit: Yes (4) Nicotine dependence Current Visit: No Qualifiers: Nicotine product type: cigarettes Substance use status: in withdrawal Qualified Code(s): F17.213 - Nicotine dependence, cigarettes, with withdrawal (5) Schizophrenia Current Visit: No (6) Substance-induced sleep disorder Current Visit: Yes (7) Asthma Current Visit: No Qualifiers: Asthma severity: mild Asthma persistence: intermittent Asthma complication type: uncomplicated Qualified Code(s): J45.20 - Mild intermittent asthma, uncomplicated (8) HTN (hypertension) Current Visit: No Qualifiers: Hypertension type: essential hypertension Qualified Code(s): I10 - Essential (primary) hypertension (9) Hepatitis C virus infection cured after antiviral drug therapy Current Visit: No (10) Osteoarthritis of knees, bilateral Current Visit: No Qualifiers: Osteoarthritis type: primary Qualified Code(s): M17.0 - Bilateral primary osteoarthritis of knee (11) Post laminectomy syndrome Current Visit: No Initial treatment plan: Patient will be discharged tomorrow and referred to [facility] for shelter residential treatment
[2018-06-20] MEDS: IBUPROFEN 400 MG TABLET (FP) PO PRN ×2 (14:58→21:29)
[2018-06-20] MEDS: THIAMINE HCL 100 MG TABLET (FP) PO SCH (21:30)
[2018-06-20] MEDS: hydrOXYzine PAMOATE 50 MG CAPSULE (FP) PO PRN (21:30)
[2018-06-20] MEDS: LIDOCAINE PATCH REMOVAL MC SCH (22:03)
[2018-06-21 06:48] VITALS: TEMP 97.4
[2018-06-21] MEDS: IBUPROFEN 400 MG TABLET (FP) PO PRN ×2 (08:53→13:47)
[2018-06-21] MEDS: PRENATAL VITAMINS W/ FOLIC ACID TABLET (FP) PO SCH (09:56)
[2018-06-21] MEDS: risperiDONE 3 MG TABLET PO SCH ×2 (09:56→21:49)
[2018-06-21] MEDS: LIDOCAINE 5% TOPICAL PATCH TP SCH (09:56)
[2018-06-21] MEDS: BUPROPION HCL 150 MG, BUPROPION HCL 300 MG PO SCH (09:56)
[2018-06-21] MEDS: NICOTINE 14 MG/24 HOURS TOPICAL PATCH TD SCH (09:56)
[2018-06-21] MEDS: LISINOPRIL 10 MG TABLET (FP) PO SCH (09:56)
[2018-06-21] MEDS ORDERED: ACETAMINOPHEN 325 MG TABLET (FP) PO PRN (12:03)
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
[2018-06-21] MEDS: CYCLOBENZAPRINE HCL 10 MG TABLET (FP) PO SCH ×2 (13:47→21:49)
[2018-06-21] MEDS: THIAMINE HCL 100 MG TABLET (FP) PO SCH (21:49)
[2018-06-21] MEDS: LIDOCAINE PATCH REMOVAL MC SCH (21:49)
[2018-06-21] MEDS: RANITIDINE HCL 150 MG TABLET (FP) PO SCH (21:50)
[2018-06-21] MEDS: hydrOXYzine PAMOATE 50 MG CAPSULE (FP) PO PRN (21:50)
[2018-06-22] MEDS: CYCLOBENZAPRINE HCL 10 MG TABLET (FP) PO SCH ×3 (06:25→21:49)
[2018-06-22] MEDS: IBUPROFEN 400 MG TABLET (FP) PO PRN ×2 (06:26→21:49)
[2018-06-22] MEDS: LIDOCAINE 5% TOPICAL PATCH TP SCH (10:16)
[2018-06-22] MEDS: NICOTINE 14 MG/24 HOURS TOPICAL PATCH TD SCH (10:16)
[2018-06-22] MEDS: LISINOPRIL 10 MG TABLET (FP) PO SCH (10:17)
[2018-06-22] MEDS: BUPROPION HCL 150 MG, BUPROPION HCL 300 MG PO SCH (10:17)
[2018-06-22] MEDS: RANITIDINE HCL 150 MG TABLET (FP) PO SCH ×2 (10:17→21:49)
[2018-06-22] MEDS: risperiDONE 3 MG TABLET PO SCH ×2 (10:17→21:49)
[2018-06-22] MEDS: PRENATAL VITAMINS W/ FOLIC ACID TABLET (FP) PO SCH (10:17)
[2018-06-22] MEDS: hydrOXYzine PAMOATE 50 MG CAPSULE (FP) PO PRN ×2 (10:18→21:49)
--- NOTE | 2018-06-22 12:33 | PN ---
Psychiatric Progress Note Vital Signs: Vital Signs Period Temp Pulse Resp BP Sys/Romano Pulse Ox Last 24 Hr 97.4 F 72-95 16-18 125-127/84-87 Date of Session: 06/22/18 Chief Complaint:: Discharge Note HPI: Patient addressing Alcohol, Opioid and Cocaine Dependence comorbid with Nicotine Dependence, Schizophrenia and Substance-Induced Sleep Disorder ROS: Asthma, HTN, Hep C, OA of both knees, Post laminectomy Current Medications: Active Medications Generic Name Dose Route Start Last Admin Trade Name Freq PRN Reason Stop Dose Admin Al Hydroxide/Mg Hydroxide 30 ml 06/07/18 20:18 06/21/18 13:47 Mylanta Oral Suspension - PO 30 ml Q6H PRN Administration DYSPEPSIA Albuterol Sulfate 2 puff 06/08/18 14:32 06/16/18 10:00 Ventolin Hfa Inhaler - IH 2 puff Q4H PRN Administration WHEEZING Bupropion HCl 150 mg/ 450 mg 06/08/18 11:40 06/22/18 10:17 Bupropion HCl 300 mg PO 450 mg DAILY ROBI Administration Colloidal Oatmeal 1 applic 06/12/18 14:07 06/12/18 14:48 Aveeno Soap - TP 1 bar DAILY PRN Administration HYGEINE Cyclobenzaprine HCl 10 mg 06/21/18 14:00 06/22/18 06:25 Flexeril - PO 10 mg TID ROBI Administration Eucalyptus/Menthol/Phenol/Sorbitol 1 each 06/07/18 20:18 Cepastat Lozenge - MM Q4H PRN SORE THROAT Guaifenesin 10 ml 06/07/18 20:18 Robitussin Dm - PO Q6H PRN COUGH Hydroxyzine Pamoate 50 mg 06/07/18 20:18 06/22/18 10:18 Vistaril - PO 50 mg Q4H PRN Administration AGITATION Ibuprofen 400 mg 06/21/18 12:08 06/22/18 06:26 Motrin - PO 400 mg Q6H PRN Administration FEVER Lidocaine 2 patch 06/09/18 14:45 06/22/18 10:16 Lidoderm Patch - TP 2 patch DAILY ROBI Administration Lisinopril 10 mg 06/10/18 10:00 06/22/18 10:17 Prinivil PO 10 mg DAILY ROBI Administration Loperamide HCl 4 mg 06/07/18 20:18 Imodium - PO Q6H PRN DIARRHEA Magnesium Citrate 300 ml 06/07/18 20:18 Citroma - PO Q48H PRN CONSTIPATION Magnesium Hydroxide 30 ml 06/07/18 20:18 Milk Of Magnesia - PO DAILY PRN CONSTIPATION Melatonin 5 mg 06/07/18 22:00 06/11/18 21:31 Melatonin PO 5 mg HS PRN Administration INSOMNIA Methyl Salicylate 1 applic 06/22/18 10:45 Alfonso-Toro - TP BID ROBI Miscellaneous 1 each 06/09/18 22:00 06/21/18 21:49 Lidoderm Patch Removal MC 1 each DAILY@2200 ROBI Administration Nicotine 14 mg 06/08/18 10:00 06/22/18 10:16 Nicoderm Patch - TD 14 mg DAILY ROBI Administration Nicotine Polacrilex 2 mg 06/07/18 20:20 Nicorette Gum - BUC Q2H PRN NICOTINE REPLACEMENT RX Multivit/Folic Acid/Iron 1 tab 06/08/18 10:00 06/22/18 10:17 Vitamins (Sjr) - PO 1 tab DAILY ROBI Administration Pseudoephedrine/Triprolidine 1 combo 06/07/18 20:18 Actifed - PO TID PRN NASAL CONGESTION Ranitidine HCl 150 mg 06/21/18 22:00 06/22/18 10:17 Zantac - PO 150 mg BID ROBI Administration Risperidone 3 mg 06/08/18 11:45 06/22/18 10:17 Risperdal - PO 3 mg BID ROBI Administration Thiamine HCl 100 mg 06/07/18 22:00 06/21/18 21:49 Vitamin B1 - PO 100 mg HS ROBI Administration Current Side Effect: No Lab tests ordered: Yes Lab tests reviewed: Yes Provider note:: Patient will complete this program on 06/23/18. He has met his treatment goals and will continue to address his issues in [facility] residential treatment at [facility]. Told telegraphic typewriter operator chief that from his participation in this program, he has learned the importance of surounding himself with a sober support network in ordr to maintan abstinence. He responded well to Wellbutrin XL 450 mg po daily and Risperdal 3 mg po BID. Scripts for 30 days supply of these medications will be electronically transmitted to [facility] at [address] [place] [id number]. He is stable for discharge on 06/21/18 Total face to face time:: 35 Mental Status Exam - Mental Status Exam Alert and Oriented to: Time, Place, Person Cognitive Function: Fair Patient Appearance: Well Groomed Mood: Hopeful, Euthymic Affect: Appropriate Patient Behavior: Cooperative Speech Pattern: Clear Voice Loudness: Normal Thought Process: Intact, Goal Oriented Thought Disorder: Not Present Hallucinations: Denies Suicidal Ideation: Denies Homicidal Ideation: Denies Insight/Judgement: Fair Sleep: Fair Appetite: Good Muscle strength/Tone: Normal Gait/Station: Other (Uses a cane as ambulatory aid) Psychiatric Treatment Plan - Problem List (1) Alcohol dependence Current Visit: Yes (2) Opioid dependence Current Visit: Yes (3) Cocaine dependence Current Visit: Yes (4) Nicotine dependence Current Visit: No Qualifiers: Nicotine product type: cigarettes Substance use status: in withdrawal Qualified Code(s): F17.213 - Nicotine dependence, cigarettes, with withdrawal (5) Schizophrenia Current Visit: No (6) Substance-induced sleep disorder Current Visit: Yes (7) Asthma Current Visit: No Qualifiers: Asthma severity: mild Asthma persistence: intermittent Asthma complication type: uncomplicated Qualified Code(s): J45.20 - Mild intermittent asthma, uncomplicated (8) HTN (hypertension) Current Visit: No Qualifiers: Hypertension type: essential hypertension Qualified Code(s): I10 - Essential (primary) hypertension (9) Hepatitis C virus infection cured after antiviral drug therapy Current Visit: No (10) Osteoarthritis of knees, bilateral Current Visit: Yes Qualifiers: Osteoarthritis type: primary Qualified Code(s): M17.0 - Bilateral primary osteoarthritis of knee (11) Post laminectomy syndrome Current Visit: No Initial treatment plan: Patient will be discharged tomorrow and referred to [facility] for assistant terminal manager residential treatment
[2018-06-22] MEDS: METHYL SALICYLATE/MENTHOL OINT 30 GM TUBE TP SCH ×2 (14:35→21:50)
[2018-06-22] MEDS: THIAMINE HCL 100 MG TABLET (FP) PO SCH (21:49)
[2018-06-22] MEDS: LIDOCAINE PATCH REMOVAL MC SCH (21:50)
[2018-06-23] MEDS: CYCLOBENZAPRINE HCL 10 MG TABLET (FP) PO SCH (07:04)
[2018-06-23 07:06] VITALS: BP 133/92; PULSE 72
[2018-06-23] MEDS: IBUPROFEN 400 MG TABLET (FP) PO PRN (08:16)
== END 2018-06-23 09:00 | disposition home or self-care (01) | DRG 772 ==
LOC: YASAS 19:23 → Y3W 19:24
PROVIDERS: ADMIT Psychiatry & Neurology Psychiatry; ATTEND Psychiatry & Neurology Psychiatry
PROC: HZ42ZZZ Group Counseling for Substance Abuse Treatment, Cognitive-Behavioral (ICD-10-PCS; principal; 2018-06-07)
DX: F11.20 Opioid dependence, uncomplicated (principal); F10.20 Alcohol dependence, uncomplicated; F14.20 Cocaine dependence, uncomplicated; F17.213 Nicotine dependence, cigarettes, with withdrawal; F19.282 Other psychoactive substance dependence with psychoactive substance-induced sleep disorder; F20.9 Schizophrenia, unspecified; I10 Essential (primary) hypertension; J45.20 Mild intermittent asthma, uncomplicated; M17.0 Bilateral primary osteoarthritis of knee; M96.1 Postlaminectomy syndrome, not elsewhere classified; M54.5 Low back pain; G89.29 Other chronic pain; R26.89 Other abnormalities of gait and mobility; Z99.89 Dependence on other enabling machines and devices; E66.9 Obesity, unspecified; Z68.31 Body mass index [BMI] 31.0-31.9, adult; Z86.19 Personal history of other infectious and parasitic diseases
CPT/HCPCS: 81003; 90732; G0009